=== PATIENT | male | born 1990 | race Hispanic/Latino ===

== ENCOUNTER 2022-05-10 03:00 | Emergency (ER) | payer OTHER ==
[~2022-05-10] VITALS: Ht 172.7 cm; Wt 69.4 kg
[2022-05-10 04:27] LABS: APPEARANCE,URINE Clear (CLEAR); BILIRUBIN,URINE Negative (NEGATIVE); COLOR,URINE Yellow (YELLOW); GLUCOSE, URINE (UA) Negative (NEGATIVE); KETONES,URINE Trace mg/dL (NEGATIVE); LEUKOCYTE ESTERASE ,URINE Negative (NEGATIVE); NITRATE,URINE Negative (NEGATIVE); PH,URINE 6.5 (5.0-8.0); PROTEIN,URINE Negative (NEGATIVE); UROBILINOGEN,URINE 0.2 mg/dL (0.2-1.0)
[2022-05-10 04:31] LABS: OCCULT BLOOD,URINE Negative (NEGATIVE)
[2022-05-10 04:38] LABS: BASOPHILS % (AUTO) 0.3 % (0.0-5.0); EOSINOPHILS % (AUTO) 0.6 % (0.0-8.0); HEMATOCRIT 46.9 % (42-54); LYMPHOCYTES % (AUTO) 16.7 % (21.0-51.0); MEAN CORPUSCULAR HEMOGLOBIN 28.6 pg (27.0-33.0); MEAN CORPUSCULAR HGB CONC 33.3 g/dL (32.0-36.0); MEAN CORPUSCULAR VOLUME 86.1 fL (79-99); MONOCYTES % (AUTO) 7.1 % (3.0-13.0); NEUTROPHILS % (AUTO) 74.6 % (40.0-77.0); PLATELET COUNT (AUTO) 349 K/uL (130-400); RED BLOOD CELL COUNT(AUTO) 5.45 MIL/uL (4.50-6.20); RED CELL DISTRIBUTION WIDTH 12.5 % (11.0-15.5); WHITE BLOOD COUNT (AUTO) 8.7 K/uL (4.8-10.8)
[2022-05-10 04:44] LABS: AMPHET/METH SCREEN,URINE NEGATIVE (NEGATIVE); BARBITURATE SCREEN, URINE NEGATIVE (NEGATIVE); BENZODIAZEPINES SCREEN,URINE NEGATIVE (NEGATIVE); CANNABINOID SCREEN,URINE NEGATIVE (NEGATIVE); COCAINE SCREEN,URINE NEGATIVE (NEGATIVE); OPIATE SCREEN,URINE NEGATIVE (NEGATIVE); PHENCYCLIDINE SCREEN,URINE NEGATIVE (NEGATIVE)
[2022-05-10 04:47] LABS: CREATININE 0.8 mg/dL (0.5-1.5); POTASSIUM 3.2 mmol/L (3.5-5.1)
[2022-05-10 04:51] LABS: ALBUMIN 4.3 g/dL (3.5-5.0); BILIRUBIN,TOTAL 0.5 mg/dL (0.2-1.0); TOTAL PROTEIN, SERUM 8.4 g/dL (6.0-8.3)
[2022-05-10 04:57] VITALS: BP 122/78
[2022-05-10] MEDS ORDERED: KCL 20 MEQ ERTAB PO ONE (05:30)
== END 2022-05-10 05:41 | disposition home or self-care (01) ==
LOC: EDH 03:00
DX: E87.6 Hypokalemia (principal); R00.2 Palpitations; G47.00 Insomnia, unspecified; F41.9 Anxiety disorder, unspecified
CPT/HCPCS: 36415; 71045; 80053; 80305; 81003; 83735; 84484; 85025; 93005

== ENCOUNTER → 2022-05-18 | Emergency (ER) | payer OTHER ==
[~2022-05-18] MED LIST: DIPH25 PO
== END ==
LOC: EDH 16:27
DX: G47.00 Insomnia, unspecified (principal); Z53.21 Procedure and treatment not carried out due to patient leaving prior to being seen by health care provider

== ENCOUNTER 2025-07-11 10:50 | Emergency (ER) | payer SELFPAY ==
[~2025-07-11] VITALS: Ht 172.7 cm; Wt 63.5 kg
[~2025-07-11 10:50] MED LIST changes: +DIPH-1242 PO; -DIPH25 PO
--- NOTE | 2025-07-11 11:44 | ERN ---
ED Note History of Present Illness Stated Complaint: FINGER LAC Chief Complaint: Laceration/Avulsion Time Seen by MD: 10:52 Time Seen by Midlevel: 11:00 Dictation: A 34-year-old male with no past medical history coming in for a crush injury to the left 3rd digit. Patient states a metal fell on him. Patient states he is current with the his vaccinations. Allergies: Coded Allergies: No Known Allergies (Unverified Allergy, Unknown, 05/10/22) Home Meds Active Scripts Diphenhydramine HCl (Benadryl) 25 Mg Cap, 25 MG PO DAILY PRN for INSOMNIA, #4 CAP Prov:GANESH ESTRELLA [employer] ADMINISTRATOR 05/15/22 Past Medical History Past Medical History: No Pertinent History Surgical History: None Review of System Dictation Constitutional: Negative for fever,chills, and weight loss Eyes: Negative for injury, pain,redness, and discharge ENT: Negative for injury,pain or swelling Cardiovascular: Negative for chest pain, palpitations, and edema Respiratory: Negative for shortness of breath, cough, and wheezing, Abdomen/GI: Negative for abdominal pain, nausea, vomiting, diarrhea, and constipation Back: Negative for injury and pain : Negative for injury, bleeding and discharge MS/Extremity: Pain to the left 3rd digit Skin: Negative for rash, and discoloration Neuro: Negative for headache, weakness, numbness, tingling, and seizure Psych: Negative for suicide ideation, homicidal ideation, and hallucinations Review of Systems: was completed Initial Vital Sign VS Vital Signs Date Time Temp Pulse Resp B/P (MAP) Pulse Ox O2 Delivery O2 Flow Rate FiO2 07/11/25 10:51 98.4 80 16 127/85 100 Room Air 0 07/11/25 10:56 21 Physical Exam Dictation General: awake, alert, NAD Head/Face: Normocephalic, atraumatic Eyes: PERRL, EOMI, vision at baseline ENT: oral cavity clear, TMs clear, no signs of infection Neck: Trachea midline, supple, no nuchal rigidity Cardiovascular: RRR, normal S1/S2, No MRGs, no JVD Respiratory: CTAB, no respiratory distress, No rales or wheezes Abdomen: Soft, non-tender, non-distended, normal bowel sounds, no guarding or rebound. Skin: Warm, dry, normal turgor, no rash MS/Extremity: Pulses equal, no cyanosis, neurovascular intact, FROM, nail bed lifted from the 3rd digit of the left hand, bleeding controlled Neuro: COAx4, GCS 15, strength 5/5, CN 2-12 intact, normal cerebellar exam, normal gait, Psych: Normal behavior, mood, and affect normal Results (Laboratory/Radiology) X-RAY Comment: [facility] [address] [place], [place] [id number] IMAGING REPORT Signed PATIENT: JOSE ROBERTO HOLLOWYA MR#: [id number] : 1990 SEX: M AGE: 34 LOCATION: [facility] ORDER 54 STATUS: [facility] ER REPORT#: [id number] SERVICE 105 REASON: crush injury to 3rd digit ORDERING PHYSICIAN: QUETA WEI NP PROCEDURE: HAND 3V LT - HAND 3+VWS LT EXAM: CR Left Hand, 3 View. CLINICAL HISTORY: crush injury to 3rd digit COMPARISON: None provided. FINDINGS: There is a mildly displaced extra-articular fracture at the proximal aspect of the third distal phalanx. Joint spaces remain anatomically aligned. There is third finger soft tissue edema and a laceration noted. IMPRESSION: 1. Mildly displaced extra-articular fracture of the proximal third distal phalanx with associated soft tissue injury. /[place] DICTATED BY: VANESSA PAREKH Jr., MD DATE: 07/11/251418 ELECTRONICALLY SIGNED BY: VANESSA PAREKH Jr., MD DATE: 07/11/251418 ED Course ED Course Orders Procedure Category Date Status Time Hand 3+Vws Lt RAD 07/11/25 Resulted 10:54 Lidocaine Hcl 1% 20ml PHA 07/11/25 Complete Vial (Lidocaine Hc 12:14 Ceftriaxone 1g Vial PHA 07/11/25 Complete (Rocephine 1g Inj) 12:20 Current Medications Medications (Trade) Dose Ordered Sig/Cindi Route PRN Reason Start Time Stop Time Status Last Admin Dose Admin Ceftriaxone Sodium (ROCEphine 1G INJ) 1 gm ONCE STAT IVPB 07/11/25 12:20 07/11/25 12:22 DC 07/11/25 12:41 Lidocaine HCl (Lidocaine HCl 1% 20ml Vial) ONCE STAT INJ 07/11/25 12:14 07/11/25 12:17 DC 07/11/25 12:20 Vital Signs Date Time Temp Pulse Resp B/P (MAP) Pulse Ox O2 Delivery O2 Flow Rate FiO2 07/11/25 12:59 98.4 74 16 124/80 100 Room Air* 0 21 07/11/25 10:56 98.4 80 16 127/85 100 Room Air* 0 21 07/11/25 10:51 98.4 80 16 127/85 100 Room Air 0 Medical Decision Making MDM MDM: A 34-year-old male with no past medical history coming in for a crush injury to the left 3rd digit. Patient states a metal fell on him. Patient states he is current with the his vaccinations. See procedure note for nail avulsion repolarization. Discussed with the patient on wound care. Discussed that he needs to follow up outpatient for his fracture. Patient verbalized understanding, answered all questions. A finger splint was applied over the fracture after dressing. Differential diagnosis: Phalanx fracture, laceration, nail avulsion Rationale: Tests considered and ordered secondary to shared decision making include: Previous outside records reviewed: Old ER visits. Risk of complication and/or morbidity or mortality of patient management: None Medications-Per medication reconciliation Need for hospitalization: Patient does not meet criteria for hospitalization. Need for emergency major/minor surgery: No There are no social concerns with this patient. Prescription drug management Prescriptions will include symptomatic care Patient's prior external medical records from other ER visits were reviewed by me as indicated. Prior testing and results from previous visits were reviewed. Prior tests were taken into account with medical decision making and resource utilization, independent historian/historians were used to obtain complete medical history. I independently interpreted the test that were performed, results were reviewed by me and considered findings on radiology if ordered. Medical management and examination interpretation discussions were had by me with other qualified healthcare professionals as indicated for the patient's care. Procedure Wound Location: upper extremity (left 3rd digit) Wound's Depth, Shape: nail-avulsed Wound Explored: clean Irrigated w/ Saline (ccs): 30 Betadine Prep?: Yes Anesthesia: 1% Lidocaine Wound Debrided: moderate Wound Repaired With: sutures Suture Size/Type: 3:0 Number of Sutures: 4 DX & DISP Disposition: Discharge Departure Impression: Primary Impression: Proximal phalanx fracture of finger Additional Impressions: Nail avulsion, finger, Crush accident Condition: Stable Additional Instructions: Wash wound with soap and water. Follow up with the powered bridge specialist in 1-2 days. Take the antibiotic as prescribed. Return to the emergency room from 7- 10 days to remove the sutures. Return to the ER sooner if you notice any signs of infection. Referrals: SELF,REFERRAL (PCP) LYNDSEY MALONE MD Time of Disposition: 13:32 I have reviewed the case, and I agree with, Diagnosis and Plan QUETA WEI NP Jul 11, 2025 11:44
[2025-07-11] MEDS: LIDOCAINE HCL 1% 20 ML VIAL INJ STA (12:20)
[2025-07-11 12:59] VITALS: BP 124/80; PULSE 74; RESP 16; TEMP 98.4; O2SAT 100
--- NOTE | 2025-07-11 13:21 | HMCIMG ---
EXAM: CR Left Hand, 3 View. CLINICAL HISTORY: crush injury to 3rd digit COMPARISON: None provided. FINDINGS: There is a mildly displaced extra-articular fracture at the proximal aspect of the third distal phalanx. Joint spaces remain anatomically aligned. There is third finger soft tissue edema and a laceration noted. IMPRESSION: 1. Mildly displaced extra-articular fracture of the proximal third distal phalanx with associated soft tissue injury. /Joanna
--- NOTE | 2025-07-11 13:29 | NUR ---
LAC CLEANED AND SUTURED X4, SPLINT APPLIED, PT TOLERATED WELL
== END 2025-07-11 13:52 | disposition home or self-care (01) ==
LOC: EDH 10:50
DX: S62.613A Displaced fracture of proximal phalanx of left middle finger, initial encounter for closed fracture (principal); S61.303A Unspecified open wound of left middle finger with damage to nail, initial encounter; Z79.899 Other long term (current) drug therapy; W23.0XXA Caught, crushed, jammed, or pinched between moving objects, initial encounter; Y93.89 Activity, other specified; Y92.89 Other specified places as the place of occurrence of the external cause; Y99.8 Other external cause status
CPT/HCPCS: 99284; 96374; 73130; 11730; 29130; J0696; 99283